=== PATIENT | female | born 1975 | race Caucasian/White ===

== ENCOUNTER 2016-07-29 10:30 | Emergency (ER) | payer MEDICARE, MEDICAID ==
[~2016-07-29] VITALS: Ht 167.6 cm; Wt 90.7 kg
[~2016-07-29 10:30] MED LIST: CARV6.25 PO; INSLANTI SC; INSLISPI SC
[2016-07-29 12:31] LABS: Basophils # (auto) 0.1 uL; Basophils % (auto) 0.7 % (0.0-2.0); Eosinophils # (auto) 0.3 uL; Eosinophils % (auto) 3.7 % (0.0-7.0); Hematocrit 31.9 % (36.0-46.0); Hemoglobin 10.3 g/dL (12.2-16.2); Lymphocytes # (auto) 1.7 uL; Lymphocytes % (auto) 21.5 % (10.0-50.0); Mean Corpuscular Hemoglobin 27.8 pg (28.0-32.0); Mean Corpuscular Hgb Conc. 32.3 g/dL (32.0-36.0); Mean Corpuscular Volume 86.2 fL (80.0-100.0); Monocytes # (auto) 0.5 uL; Monocytes % (auto) 6.9 % (0.0-12.0); Neutrophils # (auto) 5.3 uL; Neutrophils % (auto) 67.2 % (37.0-80.0); Platelet Count (auto) 359 10^3/uL (140-450); Red Cell Distribution Width 15.1 % (11.6-16.0); White Blood Cell 7.9 10^3/uL (4.4-10.8)
[2016-07-29 12:58] LABS: Albumin 2.4 g/dL (3.4-5.0); Calcium 6.4 mg/dL (8.5-10.1); Magnesium 2.2 mg/dL (1.6-2.6); Potassium 4.3 mmol/L (3.5-5.1)
[2016-07-29 13:06] LABS: BUN/Creatinine Ratio 6.6; Bilirubin, Total 0.2 mg/dL (0.2-1.0); Total Protein 6.3 g/dL (6.4-8.2)
[2016-07-29 13:19] LABS: B-Type Natriuretic Peptide 456.37 pg/mL (0-100); Temperature: 22.5 C (20.0-25.0)
[2016-07-29 13:54] VITALS: BP 177/109
== END 2016-07-29 14:57 | disposition home or self-care (01) ==
LOC: ER 10:30
DX: J18.9 Pneumonia, unspecified organism (principal); J90 Pleural effusion, not elsewhere classified; M19.90 Unspecified osteoarthritis, unspecified site; I12.0 Hypertensive chronic kidney disease with stage 5 chronic kidney disease or end stage renal disease; N18.6 End stage renal disease; E11.22 Type 2 diabetes mellitus with diabetic chronic kidney disease; E78.5 Hyperlipidemia, unspecified
CPT/HCPCS: 36415; 71020; 80053; 83605; 83735; 83880; 84484; 85025; 87040; 94761

== ENCOUNTER 2016-08-04 12:49 | Inpatient (IN) | payer MEDICARE, MEDICAID ==
[~2016-08-04] VITALS: Ht 167.6 cm; Wt 99.0 kg
[2016-08-04 14:39] LABS: Basophils # (auto) 0.1 uL; Basophils % (auto) 0.6 % (0.0-2.0); Eosinophils # (auto) 0.3 uL; Eosinophils % (auto) 2.8 % (0.0-7.0); Hemoglobin 9.9 g/dL (12.2-16.2); Lymphocytes # (auto) 1.5 uL; Mean Corpuscular Hemoglobin 28.2 pg (28.0-32.0); Mean Corpuscular Hgb Conc. 32.9 g/dL (32.0-36.0); Mean Corpuscular Volume 85.8 fL (80.0-100.0); Mean Platelet Volume 7.9 fL (7.4-10.4); Monocytes # (auto) 0.4 uL; Monocytes % (auto) 4.4 % (0.0-12.0); Neutrophils # (auto) 7.8 uL; Neutrophils % (auto) 77.2 % (37.0-80.0); Platelet Count (auto) 355 10^3/uL (140-450); Red Cell Distribution Width 15.4 % (11.6-16.0); White Blood Cell 10.2 10^3/uL (4.4-10.8)
[2016-08-04 14:50] LABS: INR 0.99 (0.9-1.15); Partial Thromboplastin Time 26.9 sec (22.64-33.71); Prothrombin Time 10.2 sec (9.37-12.3)
[2016-08-04 14:59] LABS: Albumin 2.5 g/dL (3.4-5.0); BUN/Creatinine Ratio 7.3; Bilirubin, Total 0.3 mg/dL (0.2-1.0); Calcium 6.7 mg/dL (8.5-10.1); Magnesium 2.2 mg/dL (1.6-2.6); Potassium 4.3 mmol/L (3.5-5.1); Total Protein 6.3 g/dL (6.4-8.2)
[2016-08-04 15:05] LABS: B-Type Natriuretic Peptide 498.77 pg/mL (0-100); Temperature: 22.7 C (20.0-25.0)
[2016-08-04] MEDS ORDERED: CALCIUM GLUC 4.65 MEQ/10ML 4.65 MEQ in SODIUM CHL 0.9% 50 ML IV ONE (16:00)
[2016-08-04] MEDS ORDERED: cefTRIAXone 1GM/50ML D5W 50 ML IV ONE (16:00)
[2016-08-04] MEDS ORDERED: FUROSEMIDE 40 MG/4 ML VIAL IV ONE (16:00)
[2016-08-04] MEDS ORDERED: FUROSEMIDE 20 MG/2 ML VIAL IV ONE (16:45)
[2016-08-04] MEDS ORDERED: DEXTROSE (50%) 50ML SYRG IV PRN (17:30)
[2016-08-04] MEDS ORDERED: TEMAZEPAM 15 MG CAP PO PRN (17:45)
[2016-08-04] MEDS ORDERED: DOCUSATE SOD 100 MG CAP PO PRN (17:45)
[2016-08-04] MEDS ORDERED: ONDANSETRON HCL 4 MG/2 ML VIAL IV PRN (17:45)
[2016-08-04] MEDS ORDERED: NITROGLYCERIN 0.4 MG SL TAB SL PRN (17:45)
[2016-08-04] MEDS: MULTIPLE VITAMIN TAB PO SCH (18:16)
[2016-08-04] MEDS: CALCIUM ACETATE 667 MG CAP PO SCH (18:16)
[2016-08-04] MEDS: HYDROmorphone HCL 2 MG/ML VL IV PRN (18:16)
[2016-08-04] MEDS: DOXYCYCLINE HYC 100MG/250ML 250 ML IV SCH (18:16)
[2016-08-04] MEDS ORDERED: cloNIDine HCL 0.1 MG TAB ONE (19:37)
[2016-08-04] MEDS ORDERED: cloNIDine HCL 0.1 MG TAB PO ONE (19:45)
[2016-08-04] MEDS ORDERED: LABETALOL HCL 5 MG/ML 4ML SYRINGE IV ONE (19:50)
[2016-08-04] MEDS ORDERED: PROMETHAZINE HCL 25 MG/ML 1ML IV PRN (20:00)
[2016-08-04] MEDS: LABETALOL HCL 5 MG/ML 4ML SYRINGE IV PRN (20:01)
[2016-08-04 20:20] VITALS: BP 167/90
[2016-08-04] MEDS: SODIUM CHLOR 0.9% PF (SALINE LOCK) 10ML VIAL IV SCH (21:22)
[2016-08-04] MEDS: Boost Glucose Control 8 Ounces PO SCH (21:22)
[2016-08-04] MEDS: ATORVASTATIN 20 MG TAB PO SCH (21:23)
[2016-08-04] MEDS: CARVEDILOL 3.125 MG TAB PO SCH (21:23)
[2016-08-04 22:00] VITALS: BP 167/90
[2016-08-04] MEDS: InsuLIN REG 1unit/0.01ml Soln (100units/ml) SC SCH (22:00)
[2016-08-04] MEDS: ACCU-CHEK COMFORT CURVE STRIP VI SCH (22:29)
[2016-08-05 05:00] VITALS: BP 154/77
[2016-08-05] MEDS: DOXYCYCLINE HYC 100MG/250ML 250 ML IV SCH ×2 (05:32→18:55)
[2016-08-05] MEDS: SODIUM CHLOR 0.9% PF (SALINE LOCK) 10ML VIAL IV SCH ×3 (05:32→21:39)
[2016-08-05] MEDS: HYDROmorphone HCL 2 MG/ML VL IV PRN ×3 (05:32→22:34)
[2016-08-05] MEDS: Boost Glucose Control 8 Ounces PO SCH ×4 (05:32→21:39)
[2016-08-05] MEDS: InsuLIN REG 1unit/0.01ml Soln (100units/ml) SC SCH ×4 (06:29→21:40)
[2016-08-05] MEDS: ACCU-CHEK COMFORT CURVE STRIP VI SCH ×4 (06:29→21:40)
[2016-08-05 06:37] LABS: Albumin 2.2 g/dL (3.4-5.0); BUN/Creatinine Ratio 6.9; Bilirubin, Total 0.2 mg/dL (0.2-1.0); Calcium 6.9 mg/dL (8.5-10.1); Potassium 3.5 mmol/L (3.5-5.1); Total Protein 5.8 g/dL (6.4-8.2)
[2016-08-05 06:45] LABS: Basophils # (auto) 0.1 uL; Basophils % (auto) 0.8 % (0.0-2.0); Eosinophils # (auto) 0.3 uL; Eosinophils % (auto) 3.7 % (0.0-7.0); Hematocrit 27.2 % (36.0-46.0); Lymphocytes # (auto) 1.9 uL; Lymphocytes % (auto) 24.3 % (10.0-50.0); Mean Corpuscular Hemoglobin 28.5 pg (28.0-32.0); Mean Corpuscular Hgb Conc. 32.9 g/dL (32.0-36.0); Mean Corpuscular Volume 86.6 fL (80.0-100.0); Mean Platelet Volume 8.1 fL (7.4-10.4); Monocytes # (auto) 0.5 uL; Monocytes % (auto) 6.4 % (0.0-12.0); Neutrophils # (auto) 5.1 uL; Neutrophils % (auto) 64.8 % (37.0-80.0); Platelet Count (auto) 309 10^3/uL (140-450); Red Cell Distribution Width 15.8 % (11.6-16.0); White Blood Cell 7.9 10^3/uL (4.4-10.8)
[2016-08-05 07:00] VITALS: BP 153/82
[2016-08-05] MEDS: CALCIUM ACETATE 667 MG CAP PO SCH ×3 (09:42→18:55)
[2016-08-05] MEDS: MULTIPLE VITAMIN TAB PO SCH (09:43)
[2016-08-05] MEDS: CARVEDILOL 3.125 MG TAB PO SCH ×2 (09:43→21:40)
[2016-08-05 10:23] LABS: Urine Bilirubin Negative (Negative); Urine Color Yellow (Yellow); Urine Hyaline Cast FEW /lpf (0 - 2); Urine Ketone Negative (Negative); Urine Nitrite Negative (Negative); Urine RBC 5 /hpf (0 - 4); Urine Squamous Epithelial Cell FEW /hpf (<5); Urine Urobilinogen Normal (Negative); Urine pH 6.5 (5.0-8.0)
[2016-08-05 10:25] LABS: Urine Blood 1+ /uL (Negative); Urine Glucose 3+ mg/dL (Normal)
[2016-08-05 12:00] VITALS: BP 151/84
[2016-08-05] MEDS ORDERED: EPOETIN ALFA 10,000 UNIT/1 ML VIAL SC ONE (12:15)
[2016-08-05 16:51] VITALS: BP 131/71
[2016-08-05] MEDS: ALBUMIN 25% 100 ML IV SCH ×2 (18:59→19:45)
[2016-08-05 20:53] VITALS: BP 169/102
[2016-08-05] MEDS: LABETALOL HCL 5 MG/ML 4ML SYRINGE IV PRN (20:54)
[2016-08-05] MEDS: ATORVASTATIN 20 MG TAB PO SCH (21:40)
[2016-08-06] MEDS: LABETALOL HCL 5 MG/ML 4ML SYRINGE IV PRN (00:19)
[2016-08-06] MEDS: HYDROmorphone HCL 2 MG/ML VL IV PRN ×2 (04:39→09:39)
[2016-08-06 05:33] VITALS: BP 156/78
[2016-08-06 05:50] LABS: Basophils # (auto) 0.1 uL; Basophils % (auto) 0.6 % (0.0-2.0); Eosinophils # (auto) 0.2 uL; Eosinophils % (auto) 2.5 % (0.0-7.0); Hematocrit 28.5 % (36.0-46.0); Hemoglobin 9.2 g/dL (12.2-16.2); Lymphocytes # (auto) 1.4 uL; Lymphocytes % (auto) 15.7 % (10.0-50.0); Mean Corpuscular Hgb Conc. 32.4 g/dL (32.0-36.0); Mean Corpuscular Volume 86.6 fL (80.0-100.0); Mean Platelet Volume 8.3 fL (7.4-10.4); Monocytes # (auto) 0.5 uL; Monocytes % (auto) 5.5 % (0.0-12.0); Neutrophils # (auto) 6.8 uL; Neutrophils % (auto) 75.7 % (37.0-80.0); Platelet Count (auto) 341 10^3/uL (140-450); Red Cell Distribution Width 15.3 % (11.6-16.0); White Blood Cell 8.9 10^3/uL (4.4-10.8)
[2016-08-06] MEDS: ACCU-CHEK COMFORT CURVE STRIP VI SCH ×4 (06:43→21:43)
[2016-08-06] MEDS: InsuLIN REG 1unit/0.01ml Soln (100units/ml) SC SCH ×4 (06:43→21:43)
[2016-08-06] MEDS: Boost Glucose Control 8 Ounces PO SCH ×4 (06:43→21:41)
[2016-08-06] MEDS: SODIUM CHLOR 0.9% PF (SALINE LOCK) 10ML VIAL IV SCH ×3 (06:43→21:41)
[2016-08-06] MEDS: DOXYCYCLINE HYC 100MG/250ML 250 ML IV SCH (06:43)
[2016-08-06 06:48] LABS: Albumin 2.6 g/dL (3.4-5.0); Bilirubin, Total 0.3 mg/dL (0.2-1.0); Calcium 7.5 mg/dL (8.5-10.1); Potassium 3.7 mmol/L (3.5-5.1)
[2016-08-06 07:00] VITALS: BP 169/79
[2016-08-06 07:30] LABS: Phosphorus 9.3 mg/dL (2.6-4.90)
[2016-08-06] MEDS: CALCIUM ACETATE 667 MG CAP PO SCH ×3 (08:00→17:44)
[2016-08-06] MEDS: ALBUMIN 25% 100 ML IV SCH ×2 (09:40→10:00)
[2016-08-06] MEDS: MULTIPLE VITAMIN TAB PO SCH (09:41)
[2016-08-06] MEDS: CARVEDILOL 3.125 MG TAB PO SCH ×2 (09:41→21:43)
[2016-08-06] MEDS ORDERED: hydrALAZINE HCL 20 MG/ML VL IV PRN (12:00)
[2016-08-06 12:09] VITALS: BP 181/95
[2016-08-06] MEDS ORDERED: DOXYCYCLINE 100 MG TAB/CAP PO ONE (13:00)
[2016-08-06] MEDS ORDERED: FUROSEMIDE 20 MG/2 ML VIAL IV ONE (13:45)
[2016-08-06] MEDS ORDERED: cloNIDine HCL 0.1 MG TAB PO PRN (14:00)
[2016-08-06] MEDS ORDERED: NIFEdipine ER 30 MG TAB PO ONE (14:00)
[2016-08-06] MEDS: traMADol HCL 50 MG TAB PO PRN ×2 (14:23→21:41)
[2016-08-06 16:38] VITALS: BP 183/86
[2016-08-06] MEDS: ATORVASTATIN 20 MG TAB PO SCH (21:41)
[2016-08-06] MEDS: DOXYCYCLINE 100 MG TAB/CAP PO SCH (21:41)
[2016-08-06 22:16] VITALS: BP 163/88
[2016-08-07 05:00] VITALS: BP 155/98
[2016-08-07] MEDS: Boost Glucose Control 8 Ounces PO SCH ×4 (06:11→21:06)
[2016-08-07] MEDS: ACCU-CHEK COMFORT CURVE STRIP VI SCH (06:11)
[2016-08-07] MEDS: InsuLIN REG 1unit/0.01ml Soln (100units/ml) SC SCH (06:11)
[2016-08-07] MEDS: SODIUM CHLOR 0.9% PF (SALINE LOCK) 10ML VIAL IV SCH ×3 (06:11→21:06)
[2016-08-07] MEDS: traMADol HCL 50 MG TAB PO PRN (06:11)
[2016-08-07 07:32] LABS: Calcium 7.4 mg/dL (8.5-10.1); Potassium 3.5 mmol/L (3.5-5.1)
[2016-08-07 09:00] VITALS: BP 161/83
[2016-08-07] MEDS: NIFEdipine ER 30 MG TAB PO SCH (10:00)
[2016-08-07] MEDS ORDERED: ALBUMIN 25% 100 ML IV SCH (10:00)
[2016-08-07] MEDS: CALCIUM ACETATE 667 MG CAP PO SCH ×3 (10:50→18:02)
[2016-08-07] MEDS: CARVEDILOL 3.125 MG TAB PO SCH ×2 (10:52→21:07)
[2016-08-07] MEDS: MULTIPLE VITAMIN TAB PO SCH (10:53)
[2016-08-07] MEDS: DOXYCYCLINE 100 MG TAB/CAP PO SCH ×2 (10:54→21:06)
[2016-08-07] MEDS: HYDROmorphone HCL 2 MG TAB PO PRN ×2 (10:55→21:06)
[2016-08-07] MEDS ORDERED: FUROSEMIDE 20 MG/2 ML VIAL IV ONE (12:02)
[2016-08-07 13:00] VITALS: BP 157/90
[2016-08-07] MEDS: ALBUMIN 25% 100 ML IV SCH ×2 (13:32→16:00)
[2016-08-07 16:53] VITALS: BP 149/79
[2016-08-07] MEDS: PRO-STAT 64 30ML PO SCH (18:00)
[2016-08-07] MEDS: ATORVASTATIN 20 MG TAB PO SCH (21:06)
[2016-08-07 22:00] VITALS: BP 179/91
[2016-08-08] VITALS (8 sets, daily range): BP systolic 165–200; BP diastolic 60–101
[2016-08-08] MEDS: HYDROmorphone HCL 2 MG TAB PO PRN ×2 (02:34→11:53)
[2016-08-08] MEDS ORDERED: HYDROmorphone HCL 2 MG/ML VL IV ONE (05:15)
[2016-08-08] MEDS ORDERED: ONDANSETRON HCL 4 MG/2 ML VIAL IV ONE (05:15)
[2016-08-08] MEDS: SODIUM CHLOR 0.9% PF (SALINE LOCK) 10ML VIAL IV SCH ×2 (05:24→14:11)
[2016-08-08] MEDS: Boost Glucose Control 8 Ounces PO SCH ×2 (05:25→12:00)
[2016-08-08] MEDS: PRO-STAT 64 30ML PO SCH (08:00)
[2016-08-08] MEDS: CALCIUM ACETATE 667 MG CAP PO SCH ×2 (09:02→12:00)
[2016-08-08] MEDS: MULTIPLE VITAMIN TAB PO SCH (09:02)
[2016-08-08] MEDS: DOXYCYCLINE 100 MG TAB/CAP PO SCH (09:02)
[2016-08-08] MEDS: CARVEDILOL 3.125 MG TAB PO SCH (09:04)
[2016-08-08] MEDS: NIFEdipine ER 30 MG TAB PO SCH (10:00)
== END 2016-08-08 15:25 | disposition home or self-care (01) | DRG 291 ==
LOC: ER 12:51 → TELE 12:52 → TELE-EAST 20:29 → EAST 08-05 23:28
PROVIDERS: ADMIT Internal Medicine; ATTEND Internal Medicine
PROC: 3E1M39Z Irrigation of Peritoneal Cavity using Dialysate, Percutaneous Approach (ICD-10-PCS; principal; 2016-08-04)
DX: I13.2 Hypertensive heart and chronic kidney disease with heart failure and with stage 5 chronic kidney disease, or end stage renal disease (principal); E43 Unspecified severe protein-calorie malnutrition; N18.6 End stage renal disease; I50.32 Chronic diastolic (congestive) heart failure; D63.1 Anemia in chronic kidney disease; E11.21 Type 2 diabetes mellitus with diabetic nephropathy; E11.22 Type 2 diabetes mellitus with diabetic chronic kidney disease; E66.9 Obesity, unspecified; E78.5 Hyperlipidemia, unspecified; G89.29 Other chronic pain; E83.51 Hypocalcemia; M19.90 Unspecified osteoarthritis, unspecified site; M46.90 Unspecified inflammatory spondylopathy, site unspecified; M51.16 Intervertebral disc disorders with radiculopathy, lumbar region; Z80.0 Family history of malignant neoplasm of digestive organs; Z87.01 Personal history of pneumonia (recurrent); Z99.2 Dependence on renal dialysis; Z98.51 Tubal ligation status; Z88.5 Allergy status to narcotic agent; Z88.1 Allergy status to other antibiotic agents; Z88.8 Allergy status to other drugs, medicaments and biological substances; Z88.0 Allergy status to penicillin; Z68.35 Body mass index [BMI] 35.0-35.9, adult
CPT/HCPCS: 36415; 71020; 71250; 80048; 80053; 81001; 81025; 82962; 83036; 83735; 83880; 84100; 84484; 84702; 85025; 85049; 85610; 85730; 87040; 87081; 93005; 93306; 96365; 96368; 96375; J0696; J0885; J1815; J3490

== ENCOUNTER 2019-02-12 07:09 | Emergency (ER) | payer MEDICARE, MEDICAID ==
[~2019-02-12] VITALS: Ht 167.6 cm; Wt 108.9 kg
[~2019-02-12 07:09] MED LIST changes: +AML5T PO; +AMLO5TAB15 PO; -CARV6.25 PO; +GABA300C10 PO; +HYDR2TAB58 PO; +LOSA-39 PO
[2019-02-12 08:28] LABS: Basophils # (auto) 0.1 uL; Basophils % (auto) 0.8 % (0.0-2.0); Eosinophils # (auto) 0.8 uL; Eosinophils % (auto) 7.9 % (0.0-7.0); Hematocrit 28.5 % (36.0-46.0); Hemoglobin 9.1 g/dL (12.2-16.2); Lymphocytes # (auto) 0.9 uL; Lymphocytes % (auto) 9.5 % (10.0-50.0); Mean Corpuscular Hemoglobin 31.9 pg (28.0-32.0); Mean Corpuscular Volume 99.6 fL (80.0-100.0); Monocytes # (auto) 0.5 uL; Monocytes % (auto) 5.4 % (0.0-12.0); Neutrophils # (auto) 7.5 uL; Neutrophils % (auto) 76.4 % (37.0-80.0); Nucleated Red Blood Cells % 0.4 %; Platelet Count (auto) 210 10^3/uL (140-450); Red Blood Cells 2.86 10^6/uL (4.0-5.20); Red Cell Distribution Width 19.3 % (11.8-14.3); White Blood Cell 9.8 10^3/uL (4.4-10.8)
[2019-02-12 08:44] LABS: Albumin 3.6 g/dL (3.4-5.0); Anion Gap 13 (5-15); Blood Urea Nitrogen 49 mg/dL (7-18); Calcium 8.7 mg/dL (8.5-10.1); Carbon Dioxide 25 mmol/L (21-32); Chloride 100 mmol/L (98-107); Glucose 307 mg/dL (74-106); Magnesium 2.8 mg/dL (1.6-2.6); Potassium 4.5 mmol/L (3.5-5.1); Sodium 138 mmol/L (136-145)
[2019-02-12 08:50] LABS: Alanine Aminotransferase 21 U/L (13-56); Alkaline Phosphatase 142 U/L (45-117); Aspartate Aminotransferase 17 U/L (15-37); BUN/Creatinine Ratio 5.4; Bilirubin, Total 0.4 mg/dL (0.2-1.0); GFR African American 6 mL/min; GFR Non-African American 5 mL/min; Total Protein 8.1 g/dL (6.4-8.2)
[2019-02-12] MEDS ORDERED: InsuLIN REG 1unit/0.01ml Soln (100units/ml) SC ONE (09:15)
[2019-02-12] MEDS ORDERED: HYDROmorphone HCL 2 MG/ML VL IM ONE (09:15)
[2019-02-12 09:35] VITALS: BP 184/98
== END 2019-02-12 10:06 | disposition home or self-care (01) ==
LOC: EDUNIT# 07:09 → EDBD 07:09 → ER 07:11
DX: E11.22 Type 2 diabetes mellitus with diabetic chronic kidney disease (principal); I13.2 Hypertensive heart and chronic kidney disease with heart failure and with stage 5 chronic kidney disease, or end stage renal disease; N18.6 End stage renal disease; D63.1 Anemia in chronic kidney disease; M19.90 Unspecified osteoarthritis, unspecified site; E78.5 Hyperlipidemia, unspecified; Z88.6 Allergy status to analgesic agent; Z88.1 Allergy status to other antibiotic agents; Z88.0 Allergy status to penicillin; Z88.5 Allergy status to narcotic agent; Z88.8 Allergy status to other drugs, medicaments and biological substances; Z79.4 Long term (current) use of insulin; Z79.899 Other long term (current) drug therapy; Z99.2 Dependence on renal dialysis; Z98.51 Tubal ligation status
CPT/HCPCS: 36415; 71045; 80053; 83735; 83880; 84484; 85025; 93005; 94761; 96372; 99284; J1170; J1815